=== PATIENT | male | born 1960 | race Caucasian/White ===

== ENCOUNTER 2017-10-14 15:00 | Inpatient (IN) | payer BC ==
[2017-11-11 09:34] VITALS: BMI 34.0
[2017-11-25] MEDS ORDERED: CEFAZOLIN/Water 2 GM/20 ML SYRINGE ONE (06:16)
[2017-11-25] MEDS ORDERED: Midazolam HCl 2 mg/2 ml Vial ONE (06:31)
[2017-11-25] MEDS ORDERED: Morphine 4 MG/ML VIAL ONE (06:33)
[2017-11-25] MEDS ORDERED: HYDROcodone/Acetaminophen 10/325 mg Tablet PO PRN ×2 (07:05)
[2017-11-25] MEDS ORDERED: Ondansetron HCl/PF 4 MG/2 ML Vial IVP PRN ×3 (07:05→07:46)
[2017-11-25] MEDS ORDERED: Promethazine HCl 25 MG/ML VIAL IM PRN ×3 (07:05→07:46)
[2017-11-25] MEDS ORDERED: diphenhydrAMINE 25 MG CAP PO PRN (07:05)
[2017-11-25] MEDS ORDERED: Fentanyl 100 MCG/2 ML VIAL SLOW IVP PRN ×2 (07:05)
[2017-11-25] MEDS ORDERED: Zolpidem Tartrate 5 MG TAB PO PRN ×2 (07:05→07:09)
[2017-11-25] MEDS ORDERED: traMADol HCl 50 MG TAB PO PRN ×3 (07:05→07:09)
[2017-11-25] MEDS ORDERED: Acetaminophen 325 MG TAB PO PRN (07:05)
[2017-11-25] MEDS ORDERED: Morphine 4 MG/ML VIAL SLOW IVP PRN (07:09)
[2017-11-25] MEDS ORDERED: HYDROcodone/Acetaminophen 5/325 mg Tablet PO PRN ×2 (07:09)
[2017-11-25] MEDS ORDERED: Tranexamic Acid 1,000 MG in Sodium Chloride 0.9% 100 ML IVPB SCH (07:15)
[2017-11-25] MEDS ORDERED: SODIUM CHLORIDE IM SCH (07:30)
[2017-11-25] MEDS ORDERED: ADMIXTURE FEE IM SCH (07:30)
[2017-11-25] MEDS ORDERED: BUPIVACAINE IM SCH (07:30)
[2017-11-25] MEDS ORDERED: Morphine 10 MG/ML VIAL ONE (07:39)
[2017-11-25] MEDS ORDERED: HYDROmorphone 2 MG/ML VIAL SLOW IVP PRN (07:46)
[2017-11-25] MEDS ORDERED: Promethazine HCl 25 MG/ML VIAL SLOW IVP PRN (07:46)
[2017-11-25] MEDS: Aspirin 81 mg Enteric Coated Tablet PO SCH ×2 (09:31→20:01)
[2017-11-25] MEDS: Sodium Chloride 0.9% 1,000 ML IV SCH ×2 (09:31→14:58)
--- NOTE | 2017-11-25 10:34 | OP ---
DATE OF PROCEDURE: 11/25/2017 PREOPERATIVE DIAGNOSIS: Degenerative joint disease left knee. POSTOPERATIVE DIAGNOSIS: Degenerative joint disease left knee. SURGEON: Werner Padilla M.D. MEMBER SERVICE REPRESENTATIVE: Saul Gonzalez PA-C. BLOOD LOSS: Minimal. SPECIMEN: None. DRAINS: None. COMPLICATIONS: None. TOURNIQUET TIME: 55 minutes. IMPLANTS USED: [place] 6 femur, 7 tibia, 9 mm CSX3 polyethylene, A38 patella. PROCEDURE IN DETAIL: After informed consent was obtained in the preoperative holding area. The mary ent was taken to the operative suite where general anesthesia was induced. Once adequate level of ge neral anesthesia was obtained, the patient was positioned and a well-padded tourniquet was placed hugh und the left proximal thigh. The left lower extremity was then prepped and draped in the usual steri le fashion. Prior to exsanguination, a time out was called and all members of the surgical team agre ed upon site, surgeon, and patient. The extremity was then exsanguinated and the tourniquet was rais ed. A midline longitudinal incision was then made directly over the patella extending two fingerbrea dths above the superior pole of the patella and two fingerbreadths inferior to the inferior patellar pole of the patella. Deeper subcutaneous layers were dissected sharply and local bleeding was contro lled with Bovie electrocautery. A quad tendon longitudinal split was then made sharply and a median parapatellar arthrotomy was carried out both sharp and with Bovie electrocautery, carried down to one fingerbreadth medial to the tibial tubercle. The knee was then placed into flexion and the patella was everted nicely, and a copious fat pad ectomy was performed allowing for greater exposure of the t ibia. The computer-assisted distal femoral fiducial was then placed and pinned firmly, and the dista l femoral cutting guide was pinned firmly into place. The oscillating saw was then used to remove th e appropriate amount of bone. The 4-in-1 cutting block was then placed on the distal femur and the o scillating saw was used to remove the appropriate amount of bone off of the anterior, posterior, and chamfer cuts. After completion of bone cuts, the anterior cruciate ligament was resected sharply and the posterior cruciate ligament retractor was placed and the tibia was subluxed for better exposure. Partial meniscectomies were carried out, and the tibial computer-assisted fiducial was pinned, and the cutting guide was placed. Oscillating saw was then used to remove the bone with Hohmann retracto rs used to take care and protect the collateral ligaments. After the tibial resection was performed, a laminar supervisor nurse was placed in between the freshened bone cuts. The knee placed at 90 degrees and further bilateral meniscectomies were carried out, and the curved osteotome and curettage was used t o remove any excess bone spurs in the posterior compartment. Exparel was then injected into the post erior capsule, marisa-articular synovia, pre-patella synovia, and musculature surrounding the capsule. The trial femoral component, tibial baseplate were placed with the appropriate polyethylene trial in sert with an appropriate polyethylene spacer and patellar button. The knee was taken through full ra nge of motion with flexion and extension from 0-90 degrees and patellar broach squarely in the trochl ea without any squinting or subluxation noted. The knee was also stable to varus and valgus stressin g at 0, 15, 45, and 90 degrees of flexion. The drawer was negative. All trial components were then r emoved and the keel punch was used to provide the appropriate defect in the tibia with a mallet. The freshened bone cuts were copiously irrigated with pulsatile lavage of about 1-1/2 liters to remove a ll excess debris. The freshened bone cuts were then dried and with suction and lap sponge. The knee was placed in flexion and retractors were placed to provide access to all bone cuts. Tobramycin imp regnated methyl methacrylate cement was then placed on the freshened bone cuts and implants which wer e malleted firmly into place. Curettage and [place] elevators were used to remove any excess bone ceme nt. The knee was placed into full extension and the patellar button was placed under compression, an d the cement was allowed to cure. Once completed, the components were again taken through full range of motion and copious irrigation of the knee was carried out with another liter of normal saline. A ll components were inspected fully with full range of motion and varus and valgus stressing. There wa s no laxity noted and full extension was observed clinically. Primary closure was accomplished with #2 interrupted Vicryl stitch of the arthrotomy defect. This was oversewn with a #2 running Quill bar bed stitch. The gravitational platelet system was then injected into the arthrotomy prior to closure . The subcutaneous layer was then closed with a running 0 barbed Monocryl stitch and skin closure ac complished with a running subcuticular 3-0 Monocryl barbed Quill stitch and augmented with cement on the skin. Tourniquet was lowered. Good spontaneous return of distal pulses was noted clinically and a sterile dressing was applied to the incision. The procedure was terminated without any complicati ons. The patient was awakened in the operative suite and the tourniquet was removed, and the patient was taken to the recovery room in stable condition.
--- NOTE | 2017-11-25 10:54 | RAD ---
TWO VIEWS LEFT KNEE: Date: 11-25-17 Comparison: None. History: Status post left total knee arthroplasty. FINDINGS: There is a tibial and femoral component in place, consistent with recent left total knee arthroplasty . Post-operative changes are noted along the posterior aspect of the patella. There is post-operative gas and fluid within the left knee joint/suprapatellar bursa. No acute fracture or dislocation. IMPRESSION: Radiographic evidence of recent left total knee arthroplasty without evidence for hardware failure, f racture, or dislocation. POS: YVON
[2017-11-25] MEDS: Ketorolac Tromethamine 30 MG/ML VIAL IVP SCH ×3 (12:31→23:03)
[2017-11-25] MEDS ORDERED: Ketorolac Tromethamine 30 MG/ML VIAL IM SCH (14:00)
[2017-11-25] MEDS ORDERED: Bupivacaine HCl 0.5%/Epinephrine 1:200,000/PF 30 ml Vial ONE (14:32)
[2017-11-25] MEDS ORDERED: Bupivacaine/Epinephrine 0.25% 30 ML VIAL ONE (14:32)
[2017-11-25] MEDS: CEFAZOLIN/Water 2 GM/20 ML SYRINGE SLOW IVP SCH ×2 (14:55→23:03)
[2017-11-25] MEDS ORDERED: Lidocaine 1% PF 5 ML VIAL ONE (14:59)
[2017-11-25] MEDS ORDERED: Ketorolac Tromethamine 30 MG/ML VIAL ONE (14:59)
[2017-11-25] MEDS ORDERED: Dexamethasone 20 MG/5 ML VIAL ONE (14:59)
[2017-11-25] MEDS ORDERED: Propofol 200 MG/20 ML VIAL ONE (14:59)
[2017-11-25] MEDS ORDERED: Ondansetron HCl/PF 4 MG/2 ML Vial ONE (14:59)
[2017-11-26] MEDS: Sodium Chloride 0.9% 1,000 ML IV SCH (01:43)
[2017-11-26 04:33] LABS: Hemoglobin 11.2 g/dL (14.0-18.0); Mean Corpuscular HGB CONC 33.6 g/dL (32.0-36.0); Mean Corpuscular Hemoglobin 30.4 pg (27.0-31.0); Mean Corpuscular Volume 90.3 fl (80.0-94.0); Mean Platelet Volume 7.3 fL (7.4-10.4); Platelet Count 189 thou/uL (130-400); RBC Distribution Width 12.6 % (11.5-14.5)
[2017-11-26] MEDS: Ketorolac Tromethamine 30 MG/ML VIAL IVP SCH (06:15)
[2017-11-26] MEDS ORDERED: Ferrous Gluconate 324 MG TAB PO SCH (08:00)
[2017-11-26] MEDS: Aspirin 81 mg Enteric Coated Tablet PO SCH (08:27)
[2017-11-26] MEDS ORDERED: Senokot S 8.6-50 MG TAB PO SCH (09:00)
[2017-11-26] MEDS ORDERED: Lisinopril 20 MG TAB PO SCH (09:00)
[2017-11-26] MEDS ORDERED: Multivitamin W/ Minerals 1 TAB PO SCH (09:00)
[2017-11-26 15:42] VITALS: BP 132/72; TEMP 99.8
[2017-11-26] MEDS ORDERED: Ropivacaine 0.2% 550 ML 550 ML NERVE BLCK SCH (15:44)
--- NOTE | 2017-11-27 15:19 | DIS ---
DATE OF ADMISSION: 11/25/2017 DATE OF DISCHARGE: 11/26/2017 DISCHARGE DISPOSITION: Home. ADMISSION DIAGNOSIS: End-stage tricompartmental osteoarthritis, left knee. DISCHARGE DIAGNOSIS: End-stage tricompartmental osteoarthritis, left knee. OPERATIVE PROCEDURE: Left total knee arthroplasty. CONSULTANTS: [facility] for acute postoperative pain management. BRIEF CLINICAL HISTORY: The patient was admitted to [facility] and underwent the above elective procedure on the date of admission without intra, marisa, or postoperative complicat ion. The hospital course was unremarkable. At the time of discharge, the patient is afebrile, ambul atory without assistance utilizing a rolling walker in a full weightbearing fashion, tolerating a reg ular diet, and voiding without difficulty. The patient's incision is clean and closed without any er ythema. DISCHARGE MEDICATIONS: Please see medication reconciliation form. We will be happy to see the patient on an as needed basis between now and the next scheduled appointm ent. CONDITION ON DISCHARGE: Stable. PROGNOSIS: Good.
== END 2017-11-26 17:45 | disposition home or self-care (01) | DRG 470 ==
LOC: SURG A 11-25 05:40 → SJJU 11-25 09:22
PROVIDERS: ADMIT Orthopaedic Surgery; ATTEND Orthopaedic Surgery
PROC: 0SRD0J9 Replacement of Left Knee Joint with Synthetic Substitute, Cemented, Open Approach (ICD-10-PCS; principal; 2017-11-25)
DX: M17.12 Unilateral primary osteoarthritis, left knee (principal); Z79.82 Long term (current) use of aspirin
CPT/HCPCS: 36415; 85027; A4306; C1713; C1776; G8978-GP-CK; G8979-GP-CI; J0670; J1100; J1885; J2001; J2250; J2270; J2405; J2704; J2795; J3370; J3490; J7050

== ENCOUNTER 2017-11-11 09:06 | Outpatient (CLI) | payer BC ==
[2017-11-11 13:00] LABS: Bilirubin Negative (Negative); Blood, Urine Small (Negative); Clarity CLEAR (Clear); Glucose, Urine (Dipstick) Negative (Negative); Leukocyte Negative (Negative); Nitrite Negative (Negative); Protein, Urine (Dipstick) Negative (Neg-Trace); Specific Gravity, Urine 1.011 (1.002-1.036); Urobilinogen 0.2 mg/dL (0.2-1.0); pH, Urine 5.5 (5.0-9.0)
[2017-11-11 13:03] LABS: Bacteria/HPF None Seen HPF (None Seen); Hyaline Casts/LPF 0-3 HYALINE CAST LPF (0-3 Hyaline); Pathc Cast-AUWi Flag 0.13 (0-2.49); RBC/HPF 0-3 HPF (0-3); Squamous Epithelial None Seen HPF (0-3); WBC/HPF None Seen HPF (0-3)
--- NOTE | 2017-11-11 13:10 | RAD ---
TWO VIEWS CHEST: Date: 11-11-17 Provided Clinical History: Pre op. FINDINGS: Cardiac and mediastinal silhouette is within normal limits. Lungs appear clear. No pleural fluid or p neumothorax is apparent. Degenerative changes are seen involving the thoracic spine. IMPRESSION: No evidence for an acute cardiopulmonary process. POS: OFF
--- NOTE | 2017-11-13 17:36 | EKG ---
Test Reason : Blood Pressure : / mmHG Vent. Rate : 063 BPM Atrial Rate : 063 BPM P-R Int : 158 ms QRS Dur : 098 ms QT Int : 440 ms P-R-T Axes : 061 036 036 degrees QTc Int : 450 ms Normal sinus rhythm Normal ECG No previous ECGs available Confirmed by DR. Prabhu HUERTA ([id number]) on 11/13/2017 5:35:42 PM Referred By: FRANCISCO JAVIER Confirmed By:DR. Prabhu HUERAT
== END 2017-11-11 09:07 | disposition home or self-care (01) ==
LOC: LABBT 09:06
PROVIDERS: ATTEND Orthopaedic Surgery
DX: Z01.818 Encounter for other preprocedural examination (principal); M17.12 Unilateral primary osteoarthritis, left knee
CPT/HCPCS: 71046; 81001; 87081; 93005; 93010

== ENCOUNTER 2017-11-24 08:44 | Outpatient (CLI) | payer BC ==
[2017-11-24 09:01] LABS: Hemoglobin 14.8 g/dL (14.0-18.0); Mean Corpuscular HGB CONC 32.5 g/dL (32.0-36.0); Mean Corpuscular Hemoglobin 29.8 pg (27.0-31.0); Mean Corpuscular Volume 91.8 fl (80.0-94.0); Mean Platelet Volume 7.2 fL (7.4-10.4); Platelet Count 235 thou/uL (130-400); RBC Distribution Width 12.8 % (11.5-14.5); Red Blood Cell (RBC) Count 4.95 mill/uL (4.70-6.10); White Blood Cell (WBC) Count 6.4 thou/uL (4.8-10.8)
[2017-11-24 09:07] LABS: Prothrombin Time 12.8 SEC (12.0-14.7)
[2017-11-24 09:22] LABS: Anion Gap 14 mmol/L (10-20); BUN (Urea Nitrogen) 16 mg/dL (8.4-25.7); Calc. Creatinine Clearance 0 mL/min (70-130); Calcium 9.7 mg/dL (7.8-10.44); Carbon Dioxide 25 mmol/L (22-29); Chloride 103 mmol/L (98-107); Estimated GFR-MDRD 71; Glucose 190 mg/dL (70-105); Potassium 4.6 mmol/L (3.5-5.1); Sodium 137 mmol/L (136-145)
== END 2017-11-24 08:45 | disposition home or self-care (01) ==
LOC: LABBT 08:44
PROVIDERS: ATTEND Orthopaedic Surgery
DX: Z01.812 Encounter for preprocedural laboratory examination (principal); M17.12 Unilateral primary osteoarthritis, left knee
CPT/HCPCS: 80048; 85027; 85610; 86850; 86900; 86901

== ENCOUNTER 2018-06-08 16:00 | Inpatient (IN) | payer BC ==
[2018-06-08 16:30] VITALS: BMI 34.0
[2018-06-16] MEDS ORDERED: Sodium Chloride 0.9% 100 ML ONE (05:58)
[2018-06-16] MEDS ORDERED: CEFAZOLIN/Water 2 GM/20 ML SYRINGE ONE (05:58)
[2018-06-16] MEDS ORDERED: Fentanyl 100 MCG/2 ML VIAL ONE (06:17)
[2018-06-16] MEDS ORDERED: Midazolam HCl 2 mg/2 ml Vial ONE (06:17)
[2018-06-16] MEDS ORDERED: Bupivacaine/Epinephrine 0.25% 30 ML VIAL ONE ×2 (06:31→11:23)
[2018-06-16] MEDS ORDERED: Ondansetron HCl/PF 4 MG/2 ML Vial IVP PRN ×3 (06:59→09:01)
[2018-06-16] MEDS ORDERED: traMADol HCl 50 MG TAB PO PRN ×3 (06:59→09:01)
[2018-06-16] MEDS ORDERED: Ketorolac Tromethamine 30 MG/ML VIAL IVP PRN (06:59)
[2018-06-16] MEDS ORDERED: Promethazine HCl 25 MG/ML VIAL IM PRN ×3 (06:59→09:01)
[2018-06-16] MEDS ORDERED: Zolpidem Tartrate 5 MG TAB PO PRN ×2 (06:59→09:01)
[2018-06-16] MEDS ORDERED: HYDROcodone/Acetaminophen 10/325 mg Tablet PO PRN (06:59)
[2018-06-16] MEDS ORDERED: Ropivacaine HCl/PF 250 ML in Premix Bag 1 BAG NERVE BLCK SCH (06:59)
[2018-06-16] MEDS ORDERED: Fentanyl 100 MCG/2 ML VIAL IV PRN (07:00)
[2018-06-16] MEDS ORDERED: Promethazine HCl 25 MG/ML VIAL SLOW IVP PRN (07:56)
[2018-06-16] MEDS ORDERED: diphenhydrAMINE 25 MG CAP PO PRN (09:01)
[2018-06-16] MEDS ORDERED: Fentanyl 100 MCG/2 ML VIAL SLOW IVP PRN (09:01)
[2018-06-16] MEDS ORDERED: Acetaminophen 325 MG TAB PO PRN (09:01)
[2018-06-16] MEDS ORDERED: Labetalol HCl 100 MG/20 ML VIAL ONE (09:24)
--- NOTE | 2018-06-16 10:16 | RAD ---
TWO VIEWS RIGHT KNEE: Indication: Post op right knee. Comparison: None. FINDINGS: There is a right total knee prosthesis which projects in the expected position. There is intraarticul ar and scattered periarticular gas consistent with patient's recent post op state. IMPRESSION: Post-operative right knee without radiographic evidence of complication. POS: TPC
--- NOTE | 2018-06-16 10:42 | OP ---
DATE OF PROCEDURE: 06/16/2018 PREOPERATIVE DIAGNOSIS: Degenerative joint disease, right knee. POSTOPERATIVE DIAGNOSIS: Degenerative joint disease, right knee. TITLE OF PROCEDURE: Right total knee arthroplasty using [place] [employer] 6 femur, 7 tibia, 11 mm CS X3 polyethylene, and A38 patella. SURGEON: Werner Padilla M.D. CHIEF SCIENTIST: AGAPITO Castañeda. BLOOD LOSS: Minimal. TOURNIQUET TIME: 60 minutes. SPECIMEN: None. DRAINS: None. COMPLICATIONS: None. PROCEDURE IN DETAIL: After informed consent was obtained in the preoperative holding area. The mary ent was taken to the operative suite where general anesthesia was induced. Once adequate level of ge neral anesthesia was obtained, the patient was positioned and a well-padded tourniquet was placed hugh und the right proximal thigh. The right lower extremity was then prepped and draped in the usual maritza rile fashion. Prior to exsanguination, a time out was called and all members of the surgical team ag xavier upon site, surgeon, and patient. The extremity was then exsanguinated and the tourniquet was ra ised. A midline longitudinal incision was then made directly over the patella extending two fingerbr eadths above the superior pole of the patella and two fingerbreadths inferior to the inferior patella r pole of the patella. Deeper subcutaneous layers were dissected sharply and local bleeding was cont rolled with Bovie electrocautery. A quad tendon longitudinal split was then made sharply and a media n parapatellar arthrotomy was carried out both sharp and with Bovie electrocautery, carried down to o ne fingerbreadth medial to the tibial tubercle. The knee was then placed into flexion and the patell a was everted nicely, and a copious fat pad ectomy was performed allowing for greater exposure of the tibia. The computer-assisted distal femoral fiducial was then placed and pinned firmly, and the dis nicolas femoral cutting guide was pinned firmly into place. The oscillating saw was then used to remove the appropriate amount of bone. The 4-in-1 cutting block was then placed on the distal femur and the oscillating saw was used to remove the appropriate amount of bone off of the anterior, posterior, an d chamfer cuts. After completion of bone cuts, the anterior cruciate ligament was resected sharply a nd the posterior cruciate ligament retractor was placed and the tibia was subluxed for better exposur e. Partial meniscectomies were carried out, and the tibial computer-assisted fiducial was pinned, an d the cutting guide was placed. Oscillating saw was then used to remove the bone with Hohmann retrac tors used to take care and protect the collateral ligaments. After the tibial resection was performe d, a laminar entertainment musician was placed in between the freshened bone cuts. The knee placed at 90 degrees a nd further bilateral meniscectomies were carried out, and the curved osteotome and curettage was used to remove any excess bone spurs in the posterior compartment. The trial femoral component, tibial b aseplate were placed with the appropriate polyethylene trial insert with an appropriate polyethylene spacer and patellar button. The knee was taken through full range of motion with flexion and extensi on from 0-90 degrees and patellar broach squarely in the trochlea without any squinting or subluxatio n noted. The knee was also stable to varus and valgus stressing at 0, 15, 45, and 90 degrees of flex ion. The drawer was negative. All trial components were then removed and the keel punch was used to provide the appropriate defect in the tibia with a mallet. The freshened bone cuts were copiously ir rigated with pulsatile lavage of about 1-1/2 liters to remove all excess debris. The freshened bone cuts were then dried and with suction and lap sponge. The knee was placed in flexion and retractors were placed to provide access to all bone cuts. Tobramycin impregnated methyl methacrylate cement wa s then placed on the freshened bone cuts and implants which were malleted firmly into place. Curetta ge and [place]eter[place] elevators were used to remove any excess bone cement. The knee was placed into full ext ension and the patellar button was placed under compression, and the cement was allowed to cure. Onc e completed, the components were again taken through full range of motion and copious irrigation of t he knee was carried out with another liter of normal saline. All components were inspected fully wit h full range of motion and varus and valgus stressing. There was no laxity noted and full extension w as observed clinically. Primary closure was accomplished with #2 interrupted Vicryl stitch of the ar throtomy defect. This was oversewn with a #2 running Quill barbed stitch. The gravitational platele t system was then injected into the arthrotomy prior to closure. The subcutaneous layer was then inder sed with a running 0 barbed Monocryl stitch and skin closure accomplished with a running subcuticular 3-0 Monocryl barbed Quill stitch and augmented with cement on the skin. Tourniquet was lowered. Go od spontaneous return of distal pulses was noted clinically and a sterile dressing was applied to the incision. The procedure was terminated without any complications. The patient was awakened in the operative suite and the tourniquet was removed, and the patient was taken to the recovery room in sta ble condition.
[2018-06-16] MEDS ORDERED: Ropivacaine 0.5% HCl/PF (150 MG/30 ML VIAL) ONE (11:23)
[2018-06-16] MEDS ORDERED: Ropivacaine 0.2% HCl/PF (40 MG/20 ML VIAL) ONE (11:23)
--- NOTE | 2018-06-16 13:06 | PDOC.PN ---
- Subjective Encounter Start Date: 06/16/18 Encounter Start Time: 12:30 -: old records requested/rev Patient seen and examined. No new complaints. pt is admitted for right TKR, done without complication we are consulted for medical management currently pt is asymptomatic - Objective MAR Reviewed: Yes Vital Signs & Weight: Vital Signs (12 hours) Temp Pulse Resp BP Pulse Ox 06/16/18 11:23 96 06/16/18 10:00 98.5 F 78 18 150/91 H 95 Weight Weight 280 lb Additional Labs: old labs reviewed, medical record reviewed Radiology Reviewed by me: Yes (knee xray reviewed) Phys Exam - Physical Examination Constitutional: NAD HEENT: PERRLA, moist MMs, sclera anicteric Neck: no JVD, supple Respiratory: no wheezing, no rales, no rhonchi Cardiovascular: RRR, no significant murmur, no rub Gastrointestinal: soft, non-tender, no distention, positive bowel sounds obesity+ Musculoskeletal: no edema, pulses present right knee with dressing, nerve block in place Neurological: non-focal, normal sensation, moves all 4 limbs Lymphatic: no nodes Psychiatric: normal affect, A&O x 3 Skin: no rash, normal turgor Dx/Plan (1) Status post total right knee replacement Code(s): Z96.651 - PRESENCE OF RIGHT ARTIFICIAL KNEE JOINT Status: Acute (2) Hypertension Code(s): I10 - ESSENTIAL (PRIMARY) HYPERTENSION Status: Chronic (3) Osteoarthritis Code(s): M19.90 - UNSPECIFIED OSTEOARTHRITIS, UNSPECIFIED SITE Status: Chronic (4) Dyslipidemia Code(s): E78.5 - HYPERLIPIDEMIA, UNSPECIFIED Status: Chronic (5) Obesity (BMI 30-39.9) Code(s): E66.9 - OBESITY, UNSPECIFIED Status: Chronic - Plan cont current plan of care, plan discussed w/ family, PT/OT * continue aspirin for DVT prophylaxis as per protocol * add pepcid for GI prophylaxis * code status- full code * nerve block as per anesthesia * PT/OT as per [facility] protocol * pain control with pain meds as below * medication reviewed as below * symptomatic treatment * home medication reconciled. * discussed with family. Review of Systems - Review of Systems Constitutional: negative: fever, chills, sweats, weakness, malaise, other ENT: negative: Ear Pain, Ear Discharge, Nose Pain, Nose Discharge, Nose Congestion, Mouth Pain, Mouth Swelling, Throat Pain, Throat Swelling, Other Respiratory: negative: Cough, Dry, Shortness of Breath, Hemoptysis, SOB with Excertion, Pleuritic Pain, Sputum, Wheezing Cardiovascular: negative: chest pain, palpitations, orthopnea, paroxysmal nocturnal dyspnea, edema, light headedness, other Gastrointestinal: negative: Nausea, Vomiting, Abdominal Pain, Diarrhea, Constipation, Melena, Hematochezia, Other Genitourinary: negative: Dysuria, Frequency, Incontinence, Hematuria, Retention , Other Musculoskeletal: negative: Neck Pain, Shoulder Pain, Arm Pain, Back Pain, Hand Pain, Leg Pain, Foot Pain, Other Skin: negative: Rash, Lesions, Mark, Bruising, Other - Medications/Allergies Allergies/Adverse Reactions: Allergies Allergy/AdvReac Type Severity Reaction Status Date / Time shellfish derived Allergy Hives Verified 06/08/18 16:27 Medications: Current Medications Acetaminophen (Tylenol) 650 mg PO Q4H PRN PRN Reason: OTOOLE/ T > 101F; Mild Pain (1-3) Hydrocodone Bitart/Acetaminophen ([place] 10/325) 1 tab PO Q4H PRN PRN Reason: Pain (1-3) Hydrocodone Bitart/Acetaminophen ([place] 10/325) 2 tab PO Q4H PRN PRN Reason: PAIN (4-6) Aspirin (Ecotrin) 81 mg PO BID [facility] Cefazolin Sodium (Ancef) 2 gm SLOW IVP Q8HR [facility] Stop: 06/16/18 22:01 Diphenhydramine HCl (Benadryl) 25 mg PO Q6H PRN PRN Reason: Itching Fentanyl (Sublimaze) 50 mcg IV Q1H PRN PRN Reason: .BREAKTHROUGH PAIN Ferrous Gluconate (Fergon) 324 mg PO BID-WM PHIL Ropivacaine 250 ml/ Device 250 mls @ 10 mls/hr NERVE BLCK INF [facility] Sodium Chloride (Normal Saline 0.9%) 1,000 mls @ 100 mls/hr IV .Q10H [facility] Iron/Minerals/Multivitamins (Theragran M) 1 tab PO DAILY [facility] Ketorolac Tromethamine (Toradol) 30 mg IVP Q6H PRN PRN Reason: Moderate Pain (4-6) Stop: 06/19/18 07:00 Ondansetron HCl (Zofran) 4 mg IVP Q6H PRN PRN Reason: Nausea/Vomiting Promethazine HCl (Phenergan) 12.5 mg IM Q4H PRN PRN Reason: Nausea/Vomiting Senna/Docusate Sodium (Senokot S) 2 tab PO BID PHIL Sodium Chloride (Flush - Normal Saline) 10 ml IVF PRN PRN PRN Reason: Saline Flush Tramadol HCl (Ultram) 50 mg PO Q6H PRN PRN Reason: Mild Pain (1-3) Tramadol HCl (Ultram) 100 mg PO Q6H PRN PRN Reason: Moderate Pain 4-6 Zolpidem Tartrate (Ambien) 5 mg PO HSPRN PRN PRN Reason: Insomnia
[2018-06-16] MEDS ORDERED: Milk Of Magnesia 30 ML UDCUP PO PRN (13:08)
[2018-06-16] MEDS ORDERED: Senokot 8.6 MG TAB PO PRN (13:08)
[2018-06-16] MEDS ORDERED: hydrALAZINE 20 MG/ML VIAL SLOW IVP PRN (13:08)
[2018-06-16] MEDS ORDERED: Eucerin (Mineral Oil/Petrolatum,White) 30 gm Jar TOP PRN (13:08)
[2018-06-16] MEDS ORDERED: Artificial Tears 18 DROP/0.9 ML EA EYE PRN (13:08)
[2018-06-16] MEDS ORDERED: Loperamide HCl 2 MG CAP PO PRN (13:08)
[2018-06-16] MEDS ORDERED: Sodium Chloride 0.65% Nasal 44 ML BOT EA NARE PRN (13:08)
[2018-06-16] MEDS ORDERED: Mag-Al 1200 mg/1200 mg/30 ML UDCUP PO PRN (13:08)
[2018-06-16] MEDS ORDERED: Ondansetron ODT 4 MG TAB PO PRN (13:08)
[2018-06-16] MEDS ORDERED: Chloraseptic Spray 180 ml Bottle PO PRN (13:08)
[2018-06-16] MEDS ORDERED: Diabetic Tussin 200 MG/10 ML UDCUP PO PRN (13:08)
[2018-06-16] MEDS ORDERED: Ondansetron HCl/PF 4 MG/2 ML Vial ONE (13:26)
[2018-06-16] MEDS ORDERED: Lidocaine 1% PF 5 ML VIAL ONE (13:26)
[2018-06-16] MEDS ORDERED: Ketorolac Tromethamine 30 MG/ML VIAL ONE (13:26)
[2018-06-16] MEDS ORDERED: PROPOFOL 200 MG/20 ML VIAL ONE (13:26)
[2018-06-16] MEDS ORDERED: CEFAZOLIN/Water 2 GM/20 ML SYRINGE SLOW IVP SCH (14:00)
[2018-06-16] MEDS: Sodium Chloride 0.9% 1,000 ML IV SCH ×2 (15:36→18:51)
[2018-06-16] MEDS: CEFAZOLIN/Water 2 GM/20 ML SYRINGE SLOW IVP SCH (16:16)
[2018-06-16] MEDS: Aspirin 81 mg Enteric Coated Tablet PO SCH (21:16)
[2018-06-16] MEDS: Famotidine 20 MG TAB PO SCH (21:16)
[2018-06-17] MEDS: CEFAZOLIN/Water 2 GM/20 ML SYRINGE SLOW IVP SCH (00:58)
[2018-06-17] MEDS: HYDROcodone/Acetaminophen 10/325 mg Tablet PO PRN ×3 (01:23→10:05)
[2018-06-17] MEDS: Sodium Chloride 0.9% 1,000 ML IV SCH (04:18)
[2018-06-17 05:57] LABS: Mean Corpuscular HGB CONC 32.3 g/dL (32.0-36.0); Mean Corpuscular Hemoglobin 30.1 pg (27.0-31.0); Mean Corpuscular Volume 93.4 fL (78.0-98.0); Mean Platelet Volume 7.5 fL (7.4-10.4); Platelet Count 191 thou/uL (130-400); Red Blood Cell (RBC) Count 3.98 mill/uL (4.70-6.10); White Blood Cell (WBC) Count 8.8 thou/uL (4.8-10.8)
[2018-06-17] MEDS ORDERED: Ferrous Gluconate 324 MG TAB PO SCH (08:00)
[2018-06-17] MEDS ORDERED: Chlorthalidone 25 MG TAB PO SCH (09:00)
[2018-06-17] MEDS ORDERED: Multivitamin W/ Minerals 1 TAB PO SCH (09:00)
[2018-06-17] MEDS ORDERED: Lisinopril 20 MG TAB PO SCH (09:00)
[2018-06-17] MEDS ORDERED: Senokot S 8.6-50 MG TAB PO SCH (09:00)
[2018-06-17] MEDS: Aspirin 81 mg Enteric Coated Tablet PO SCH (10:07)
[2018-06-17] MEDS: Famotidine 20 MG TAB PO SCH (10:10)
[2018-06-17] MEDS ORDERED: Ropivacaine 0.2% 550 ML 550 ML NERVE BLCK SCH (10:26)
--- NOTE | 2018-06-17 10:29 | PDOC.PN ---
- Subjective Encounter Start Date: 06/17/18 Encounter Start Time: 09:15 Patient seen and examined. No new complaints. No overnight events he has nerve block in place, his pain controlled, - Objective Resuscitation Status: Resuscitation Status FULL:Full Resuscitation MAR Reviewed: Yes Vital Signs & Weight: Vital Signs (12 hours) Temp Pulse Resp BP BP Pulse Ox 06/17/18 07:09 97.5 F L 69 20 132/76 97 06/17/18 04:00 98.1 F 83 18 148/82 H 94 L 06/17/18 00:00 99.3 F 81 18 149/72 H 93 L Weight Weight 280 lb I&O: 06/16/18 06/17/18 06/18/18 06:59 06:59 06:59 Intake Total 1620 2280 Balance 1620 2280 Result Diagrams: 06/17/18 05:12 Phys Exam - Physical Examination Constitutional: NAD HEENT: PERRLA, moist MMs, sclera anicteric Neck: no JVD, supple Respiratory: no wheezing, no rales, no rhonchi Cardiovascular: RRR, no significant murmur, no rub Gastrointestinal: soft, non-tender, no distention, positive bowel sounds obesity+ Musculoskeletal: no edema, pulses present right knee with dressing, nerve block+ Neurological: non-focal, normal sensation Psychiatric: normal affect, A&O x 3 Skin: no rash, normal turgor Dx/Plan (1) Status post total right knee replacement Code(s): Z96.651 - PRESENCE OF RIGHT ARTIFICIAL KNEE JOINT Status: Acute (2) Hypertension Code(s): I10 - ESSENTIAL (PRIMARY) HYPERTENSION Status: Chronic (3) Osteoarthritis Code(s): M19.90 - UNSPECIFIED OSTEOARTHRITIS, UNSPECIFIED SITE Status: Chronic (4) Dyslipidemia Code(s): E78.5 - HYPERLIPIDEMIA, UNSPECIFIED Status: Chronic (5) Obesity (BMI 30-39.9) Code(s): E66.9 - OBESITY, UNSPECIFIED Status: Chronic - Plan cont current plan of care, PT/OT * continue aspirin for DVT prophylaxis * continue pepcid for GI prophylaxis * nerve block as per anesthesia * continue PT/OT [facility] per [facility] * pain controlled with pain meds as below * medication reviewed as below * symptomatic treatment * medically stable with current treatment * discharge will defer to primary team. Review of Systems - Review of Systems ENT: negative: Ear Pain, Ear Discharge, Nose Pain, Nose Discharge, Nose Congestion, Mouth Pain, Mouth Swelling, Throat Pain, Throat Swelling, Other Respiratory: negative: Cough, Dry, Shortness of Breath, Hemoptysis, SOB with Excertion, Pleuritic Pain, Sputum, Wheezing Cardiovascular: negative: chest pain, palpitations, orthopnea, paroxysmal nocturnal dyspnea, edema, light headedness, other Gastrointestinal: negative: Nausea, Vomiting, Abdominal Pain, Diarrhea, Constipation, Melena, Hematochezia, Other Genitourinary: negative: Dysuria, Frequency, Incontinence, Hematuria, Retention , Other Musculoskeletal: negative: Neck Pain, Shoulder Pain, Arm Pain, Back Pain, Hand Pain, Leg Pain, Foot Pain, Other Skin: negative: Rash, Lesions, Mark, Bruising, Other - Medications/Allergies Allergies/Adverse Reactions: Allergies Allergy/AdvReac Type Severity Reaction Status Date / Time shellfish derived Allergy Hives Verified 06/08/18 16:27 Medications: Current Medications Acetaminophen (Tylenol) 650 mg PO Q4H PRN PRN Reason: OTOOLE/ T > 101F; Mild Pain (1-3) Hydrocodone Bitart/Acetaminophen ([place] 10/325) 1 tab PO Q4H PRN PRN Reason: Pain (1-3) Hydrocodone Bitart/Acetaminophen ([place] 10/325) 2 tab PO Q4H PRN PRN Reason: PAIN (4-6) Last Admin: 06/17/18 10:05 Dose: 2 tab Al Hydroxide/Mg Hydroxide (Maalox) 15 ml PO Q4H PRN PRN Reason: Heartburn or Indigestion Artificial Tears (Tears Naturale) 0 drop EA EYE PRN PRN PRN Reason: Dry Eyes Aspirin (Ecotrin) 81 mg PO BID [facility] Last Admin: 06/17/18 10:07 Dose: 81 mg Chlorthalidone (Hygroton) 12.5 mg PO QAM [facility] Last Admin: 06/17/18 10:11 Dose: 12.5 mg Diphenhydramine HCl (Benadryl) 25 mg PO Q6H PRN PRN Reason: Itching Famotidine (Pepcid) 20 mg PO BID [facility] Last Admin: 06/17/18 10:10 Dose: 20 mg Fentanyl (Sublimaze) 50 mcg IV Q1H PRN PRN Reason: .BREAKTHROUGH PAIN Ferrous Gluconate (Fergon) 324 mg PO BID[facility] Last Admin: 06/17/18 10:09 Dose: 324 mg Guaifenesin (Robitussin Sf) 200 mg PO Q4H PRN PRN Reason: Cough Hydralazine HCl (Apresoline) 10 mg SLOW IVP Q4H PRN PRN Reason: Systolic BP > 180 Sodium Chloride (Normal Saline 0.9%) 1,000 mls @ 100 mls/hr IV .Q10H [facility] Last Admin: 06/17/18 04:18 Dose: Not Given Ropivacaine (Ropivacaine 0.2% 550 Ml) 550 mls @ 10 mls/hr NERVE BLCK INF [facility] Iron/Minerals/Multivitamins (Theragran M) 1 tab PO DAILY [facility] Last Admin: 06/17/18 10:06 Dose: 1 tab Ketorolac Tromethamine (Toradol) 30 mg IVP Q6H PRN PRN Reason: Moderate Pain (4-6) Stop: 06/19/18 07:00 Lisinopril (Zestril) 20 mg PO DAILY [facility] Last Admin: 06/17/18 10:06 Dose: 20 mg Loperamide HCl (Imodium) 2 mg PO PRN PRN PRN Reason: Diarrhea/Loose Stools Magnesium Hydroxide (Milk Of Magnesium) 30 ml PO DAILYPRN PRN PRN Reason: Constipation Mineral Oil/White Petrolatum (Eucerin Cream) 0 gm TOP BIDPRN PRN PRN Reason: Dry Skin Ondansetron HCl (Zofran) 4 mg IVP Q6H PRN PRN Reason: Nausea/Vomiting Ondansetron HCl (Zofran Odt) 4 mg PO Q6H PRN PRN Reason: Nausea/Vomiting Phenol (Chloraseptic Power 180 Ml Bot) 0 ml PO PRN PRN PRN Reason: Sore Throat Promethazine HCl (Phenergan) 12.5 mg IM Q4H PRN PRN Reason: Nausea/Vomiting Senna (Senokot) 2 tab PO HSPRN PRN PRN Reason: Constipation Senna/Docusate Sodium (Senokot S) 2 tab PO BID [facility] Last Admin: 06/17/18 10:07 Dose: 2 tab Sodium Chloride (Flush - Normal Saline) 10 ml IVF PRN PRN PRN Reason: Saline Flush Sodium Chloride ([place] Nasal Power 0.65%) 0 ml EA NARE QIDPRN PRN PRN Reason: Nasal Congestion Tramadol HCl (Ultram) 50 mg PO Q6H PRN PRN Reason: Mild Pain (1-3) Tramadol HCl (Ultram) 100 mg PO Q6H PRN PRN Reason: Moderate Pain 4-6 Zolpidem Tartrate (Ambien) 5 mg PO HSPRN PRN PRN Reason: Insomnia
[2018-06-17 11:38] VITALS: BP 133/71; TEMP 96.6
--- NOTE | 2018-06-17 15:30 | DIS ---
DATE OF ADMISSION: 06/16/2018 DATE OF DISCHARGE: 06/17/2018 The patient had a right total knee replacement by Dr. Padilla. Postoperatively, Sound Team was consul [facility]is for medical comanagement. The patient was given aspirin for DVT prophylaxis, Pepcid for GI proph ylaxis. He had nerve block. His home medication was continued upon discharge: He is given Bazine fo r pain at home, aspirin for deep venous thrombosis prophylaxis. Patient did excellent [facility] in the h [facility]sp[facility]. Patient was discharged by primary team and we will sign off. He will continue all his prev ious medication. He will follow up with Dr. Padilla and his primary care physician as instructed. We will sign off.
== END 2018-06-17 13:20 | disposition home or self-care (01) | DRG 470 ==
LOC: SURG A 06-16 05:42 → SURG B 06-16 10:08
PROVIDERS: ADMIT Orthopaedic Surgery; ATTEND Orthopaedic Surgery
PROC: 0SRC0J9 Replacement of Right Knee Joint with Synthetic Substitute, Cemented, Open Approach (ICD-10-PCS; principal; 2018-06-16)
DX: M17.11 Unilateral primary osteoarthritis, right knee (principal); I10 Essential (primary) hypertension; E78.5 Hyperlipidemia, unspecified; Z79.899 Other long term (current) drug therapy; Z79.1 Long term (current) use of non-steroidal anti-inflammatories (NSAID); F17.210 Nicotine dependence, cigarettes, uncomplicated; Z91.013 Allergy to seafood
CPT/HCPCS: 36415; 85027; A4306; C1713; C1776; G8978-GP-CK; G8979-GP-CI; J1885; J2001; J2250; J2405; J2704; J2795; J3010; J3370; J7050

== ENCOUNTER 2018-06-08 16:03 | Outpatient (CLI) | payer BC | END 2018-06-08 16:04 | disposition home or self-care (01) | LOC: LABBT 16:03 | PROVIDERS: ATTEND Orthopaedic Surgery | DX: Z01.818 Encounter for other preprocedural examination (principal); M17.11 Unilateral primary osteoarthritis, right knee | CPT/HCPCS: 87081; 93005; 93010 ==

== ENCOUNTER 2018-06-09 15:49 | Outpatient (CLI) | payer BC ==
[2018-06-09 16:31] LABS: #Basophils 0.1 thou/uL (0.0-0.2); #Eosinphils 0.2 thou/uL (0.0-0.7); #Lymphocytes 2.5 thou/uL (1.20-3.40); #Monocytes 0.7 thou/uL (0.11-0.59); #Neutrophils 3.8 thou/uL (1.40-6.50); %Basophils 1.1 % (0.0-1.0); %Eosinophils 2.5 % (0.0-10.0); %Lymphocytes 34.5 % (21.0-51.0); %Monocytes 9.3 % (0.0-10.0); %Neutrophils 52.5 % (42.0-75.0); Hemoglobin 15.1 g/dL (14.0-18.0); Mean Corpuscular HGB CONC 33.6 g/dL (32.0-36.0); Mean Corpuscular Hemoglobin 30.8 pg (27.0-31.0); Mean Corpuscular Volume 91.7 fL (78.0-98.0); Mean Platelet Volume 7.7 fL (7.4-10.4); Platelet Count 247 thou/uL (130-400); RBC Distribution Width 12.9 % (11.5-14.5); Red Blood Cell (RBC) Count 4.89 mill/uL (4.70-6.10); White Blood Cell (WBC) Count 7.2 thou/uL (4.8-10.8)
[2018-06-09 16:36] LABS: INR-International Normal Ratio 0.9; Prothrombin Time 12.5 SEC (12.0-14.7)
[2018-06-09 16:47] LABS: Anion Gap 13 mmol/L (10-20); BUN (Urea Nitrogen) 9 mg/dL (8.4-25.7); Calc. Creatinine Clearance 0 mL/min (70-130); Calcium 10.1 mg/dL (7.8-10.44); Carbon Dioxide 24 mmol/L (22-29); Chloride 103 mmol/L (98-107); Estimated GFR-MDRD 90; Glucose 94 mg/dL (70-105); Potassium 4.1 mmol/L (3.5-5.1); Sodium 136 mmol/L (136-145)
== END 2018-06-09 15:50 | disposition home or self-care (01) ==
LOC: LABBT 15:49
PROVIDERS: ATTEND Orthopaedic Surgery
DX: Z01.812 Encounter for preprocedural laboratory examination (principal); M17.11 Unilateral primary osteoarthritis, right knee
CPT/HCPCS: 80048; 85025; 85610; 86850; 86900; 86901

== ENCOUNTER 2021-06-18 09:42 | Outpatient (CLI) | payer BC ==
[2021-06-18 12:41] LABS: #Eosinphils 0.2 10x3/uL (0.0-0.5); #Monocytes 0.7 10x3/uL (0.0-1.1); #Neutrophils 2.9 10x3/uL (1.5-8.4); %Basophils 0.5 % (0.0-2.0); %Eosinophils 3.3 % (0.0-6.0); %Lymphocytes 34.9 % (18.0-47.0); %Monocytes 11.4 % (0.0-10.0); %Neutrophils 49.6 % (40.0-75.0); Hemoglobin 14.9 g/dL (13.5-17.5); Mean Corpuscular HGB CONC 32.3 g/dL (32.0-36.0); Mean Corpuscular Volume 89.9 fl (81.2-95.1); Platelet Count 230 10x3/uL (150-450); Red Blood Cell (RBC) Count 5.13 10x6/uL (4.32-5.72); White Blood Cell (WBC) Count 5.8 10x3/uL (3.5-10.5)
[2021-06-18 12:51] LABS: Anion Gap 14 mmol/L (10-20); BUN (Urea Nitrogen) 10 mg/dL (8.4-25.7); Calc. Creatinine Clearance 0 mL/min (70-130); Calcium 10.4 mg/dL (7.8-10.44); Carbon Dioxide 24 mmol/L (23-31); Chloride 102 mmol/L (98-107); Glucose 93 mg/dL (80-115); Potassium 4.4 mmol/L (3.5-5.1); Sodium 136 mmol/L (136-145)
[2021-06-18 19:05] LABS: SARS-CoV-2 PCR by NAA Not Detected (NotDetected)
== END 2021-06-18 09:43 | disposition home or self-care (01) ==
LOC: LABBT 09:42
PROVIDERS: ATTEND Orthopaedic Surgery
DX: Z01.818 Encounter for other preprocedural examination (principal); S46.011A Strain of muscle(s) and tendon(s) of the rotator cuff of right shoulder, initial encounter; Z20.822 Contact with and (suspected) exposure to COVID-19
CPT/HCPCS: 80048; 85025; 93005; 93010; U0003; U0005

== ENCOUNTER 2021-06-21 05:45 | Day surgery (SDC) | payer BC ==
[2021-06-20 12:41] VITALS: BMI 35.3
[2021-06-21] MEDS ORDERED: Sodium Chloride 0.9% 100 ML ONE (06:32)
[2021-06-21] MEDS ORDERED: Tranexamic Acid 1,000 MG/10 ML VIAL ONE (06:32)
[2021-06-21] MEDS ORDERED: ceFAZolin 2 GM/DEX 5% 100 ML BAG ONE (06:32)
[2021-06-21] MEDS ORDERED: Midazolam HCl 2 mg/2 ml Vial ONE (06:37)
[2021-06-21] MEDS ORDERED: Fentanyl 100 MCG/2 ML VIAL ONE ×2 (06:37→07:09)
[2021-06-21] MEDS ORDERED: VANCOMYCIN 2 GRAM/400 ML BAG 2 GM in Premix Bag 1 BAG IVPB SCH (06:45)
[2021-06-21] MEDS ORDERED: Phenylephrine 10 MG/ML VIAL ONE (07:09)
[2021-06-21] MEDS ORDERED: Dexamethasone 20 MG/5 ML VIAL ONE (07:25)
[2021-06-21] MEDS ORDERED: Lidocaine 1% PF 5 ML VIAL ONE (07:25)
[2021-06-21] MEDS ORDERED: Glycopyrrolate 0.2 MG/ML 5 ML SYRINGE ONE (07:25)
[2021-06-21] MEDS ORDERED: Succinylcholine 200 MG/10 ml SYRINGE FS ONE (07:25)
[2021-06-21] MEDS ORDERED: Ketorolac Tromethamine 30 MG/ML VIAL ONE (07:25)
[2021-06-21] MEDS ORDERED: PROPOFOL 200 MG/20 ML VIAL ONE (07:25)
[2021-06-21] MEDS ORDERED: Bupivacaine PF 0.5% 30 ML VIAL ONE (07:25)
[2021-06-21] MEDS ORDERED: Rocuronium Bromide 10 MG/ML (10ML VIAL) ONE (07:25)
[2021-06-21] MEDS ORDERED: Ondansetron PF 4 MG/2 ML Vial ONE (07:25)
[2021-06-21] MEDS ORDERED: HYDROcodone/Acetaminophen 5/325 mg Tablet PO PRN ×2 (08:45)
[2021-06-21] MEDS ORDERED: traMADol HCl 50 MG TAB PO PRN ×2 (08:45)
[2021-06-21] MEDS ORDERED: Zolpidem Tartrate 5 MG TAB PO PRN (08:45)
[2021-06-21] MEDS ORDERED: Ondansetron PF 4 MG/2 ML Vial IVP PRN (08:45)
[2021-06-21] MEDS ORDERED: Ketorolac Tromethamine 30 MG/ML VIAL IVP PRN (08:45)
[2021-06-21] MEDS ORDERED: Promethazine HCl 25 MG/ML VIAL IM PRN (08:45)
[2021-06-21] MEDS ORDERED: Ropivacaine 0.2% 550 ML 550 ML NERVE BLCK SCH (08:45)
[2021-06-21] MEDS ORDERED: SUGAMMADEX SODIUM 200 MG/2 ML VIAL ONE (09:20)
== END 2021-06-21 12:18 | disposition home or self-care (01) ==
LOC: SDC 05:45
PROVIDERS: ATTEND Orthopaedic Surgery
PROC: 0RRJ00Z Replacement of Right Shoulder Joint with Reverse Ball and Socket Synthetic Substitute, Open Approach (ICD-10-PCS; principal; 2021-06-21)
PROC: 3E0T3BZ Introduction of Anesthetic Agent into Peripheral Nerves and Plexi, Percutaneous Approach (ICD-10-PCS; principal; 2021-06-21)
DX: M12.511 Traumatic arthropathy, right shoulder (principal); S46.011S Strain of muscle(s) and tendon(s) of the rotator cuff of right shoulder, sequela; M75.21 Bicipital tendinitis, right shoulder; I10 Essential (primary) hypertension; E78.5 Hyperlipidemia, unspecified; F17.210 Nicotine dependence, cigarettes, uncomplicated; Z79.899 Other long term (current) drug therapy; Z91.013 Allergy to seafood; Z98.890 Other specified postprocedural states; Z96.659 Presence of unspecified artificial knee joint; W19.XXXS Unspecified fall, sequela
CPT/HCPCS: A4306; C1713; C1776; J2250; J2370; J2795; J3010; J3370; J3490

== ENCOUNTER 2022-03-16 05:23 | Emergency (ER) | payer BC ==
[2022-03-16 05:56] LABS: #Eosinphils 0.2 thou/uL (0.0-0.7); #Monocytes 0.8 thou/uL (0.11-0.59); %Basophils 0.1 % (0.0-1.0); %Eosinophils 2.1 % (0.0-10.0); %Monocytes 9.2 % (0.0-10.0); %Neutrophils 66.5 % (42.0-75.0); Hemoglobin 14.1 g/dL (14.0-18.0); Mean Corpuscular HGB CONC 32.4 g/dL (32.0-36.0); Mean Corpuscular Hemoglobin 30.5 pg (27.0-31.0); Mean Platelet Volume 7.5 fL (7.4-10.4); Platelet Count 204 thou/uL (130-400); RBC Distribution Width 13.4 % (11.5-14.5); Red Blood Cell (RBC) Count 4.64 mill/uL (4.70-6.10)
[2022-03-16] MEDS ORDERED: Nitroglycerin 2% Ointment 1 INCH/1 GM Packet ONE (06:05)
[2022-03-16 06:20] LABS: ALT (SGPT) 26 U/L (8-55); AST (SGOT) 16 U/L (5-34); Albumin 4.2 g/dL (3.4-4.8); Alkaline Phosphatase 70 U/L (40-110); Anion Gap 15 mmol/L (10-20); BUN (Urea Nitrogen) 16 mg/dL (8.4-25.7); Bilirubin, Total 0.6 mg/dL (0.2-1.2); Calc. Creatinine Clearance 0 mL/min (70-130); Calcium 9.6 mg/dL (7.8-10.44); Carbon Dioxide 24 mmol/L (23-31); Chloride 104 mmol/L (98-107); Estimated GFR 83; Globulin 3.4 g/dL (2.4-3.5); Glucose 121 mg/dL (80-115); Potassium 3.9 mmol/L (3.5-5.1); Protein, Total 7.6 g/dL (5.8-8.1); Sodium 139 mmol/L (136-145)
== END 2022-03-16 06:43 | disposition left against medical advice (07) ==
LOC: ERS 05:23
DX: R07.9 Chest pain, unspecified (principal); F17.210 Nicotine dependence, cigarettes, uncomplicated; I10 Essential (primary) hypertension
CPT/HCPCS: 36415; 71045; 80053; 84484; 85025; 93005